=== PATIENT | male | born 1960 | race Caucasian/White ===

== ENCOUNTER 2016-06-17 09:43 | Emergency (ER) | payer BC ==
[~2016-06-17] VITALS: Ht 175.3 cm; Wt 97.0 kg
[~2016-06-17 09:43] MED LIST: HYDROCODON-ACE1 EAC7 PO
[2016-06-17] MEDS ORDERED: MEDROL DOSEPAK4 MG PO (10:53)
[2016-06-17] MEDS ORDERED: TYLENOL WITH C1 EACH PO (10:53)
[2016-06-17 11:17] VITALS: BP 154/95
== END 2016-06-17 11:18 | disposition home or self-care (01) ==
LOC: EME 09:43
DX: M54.32 Sciatica, left side (principal)
CPT/HCPCS: 73502; 99281; 99283

== ENCOUNTER 2016-06-24 00:41 | Emergency (ER) | payer BC ==
[~2016-06-24] VITALS: Ht 175.3 cm; Wt 99.5 kg
[~2016-06-24 00:41] MED LIST changes: +MEDROL DOSEPAK4 MG PO; +TYLENOL WITH C1 EACH PO
[2016-06-24 00:46] VITALS: BP 172/99
[2016-06-24] MEDS ORDERED: PERCOCET 5/31 TABLET PO (01:32)
== END 2016-06-24 01:50 | disposition home or self-care (01) ==
LOC: EXP 00:41 → EME 00:41 → EXP 01:50
DX: M54.32 Sciatica, left side (principal)
CPT/HCPCS: 99281; 99283; J1885